=== PATIENT | female | born 1990 | race Caucasian/White ===

== ENCOUNTER 2017-05-27 08:54 | Emergency (ER) | payer BC ==
--- NOTE | 2017-05-27 09:03 | EDPHY ---
H & P Stated Complaint: Epigastric pain since 2am, getting worse. HPI/ROS: CHIEF COMPLAINT: Abdominal pain HISTORY OF PRESENT ILLNESS: The patient is a 26 y/o female with a history of Crohn's disease and epilepsy arriving with her friend complaining of constant epigastric pain and pressure that woke her up from sleep early this morning. She called EMS and they performed an EKG that she was told was normal, but her BP was 180/100. She declined transport, but her pain continued to worsen so she came to the ED. She has associated nausea and vomiting,last episode was one hour ago. She has never had symptoms like this previously. She denies diarrhea, fever, blood in stool or vomit. She is currently menstruating. She notes her most recent colonoscopy this year looked good and her labs during her Remicade infusion last week were largely normal. REVIEW OF SYSTEMS: A ten point review of systems was performed and is negative with the exception of the items mentioned in the HPI. Past medical history: Epilepsy - lamotrigine, Crohn's disease - Remicade, anxiety - buspirone Past surgical history: Noncontributory Family history: Noncontributory Social history: Friend at bedside. 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 No cigarette use. Very rare alcohol use. Some marijuana use. No illicit drug use. PCP: Dr. Leslie Bansal General Appearance: Alert. Vital signs reviewed. Blood pressure 155/105. Eyes: Pupils equal and round, no conjunctival injection, no discharge. Anicteric. ENT, Mouth: Mucous membranes are moist, no oropharyngeal erythema or edema. Neck: No lymphadenopathy, supple. Respiratory: Lungs are clear to auscultation; no wheezes, rales, or rhonchi. Cardiovascular: Regular rate and rhythm; no murmur, rub, or gallop. Gastrointestinal: Abdomen is soft with mild midepigastric tenderness, no masses or organomegaly, bowel sounds normal. Skin: Warm and dry, no rashes on exposed skin, normal color. Back: Nontender to palpation over the thoracolumbar spine. No CVAT. Extremities: No lower extremity edema, no calf tenderness or swelling. Neurological: Alert and oriented. Moving all four extremities easily and equally. Psychiatric: Normal affect. - Personal History LMP (Females 10-55): Now Current Tetanus Diphtheria and Acellular Pertussis (TDAP): Yes Tetanus Vaccine Date: within last 10 years - Medical/Surgical History Hx Asthma: No Hx Chronic Respiratory Disease: No Hx Diabetes: No Hx Cardiac Disease: No Hx Renal Disease: No Hx Cirrhosis: No Hx Alcoholism: No Hx HIV/AIDS: No Hx Splenectomy or Spleen Trauma: No Other PMH: Epiiepsy, Crohns disease. - Social History Smoking Status: Never smoked Constitutional: Initial Vital Signs Temperature (C) 36.6 C 05/27/17 08:55 Heart Rate 76 05/27/17 08:55 Respiratory Rate 18 05/27/17 08:55 Blood Pressure 155/105 H 05/27/17 08:55 O2 Sat (%) 99 05/27/17 08:55 O2 Delivery Mode Room Air O2 (L/minute) 2 Allergies/Adverse Reactions: No Known Allergies Allergy (Unverified 11/14/14 18:03) Home Medications: Medication Instructions Recorded LaMICtal 05/27/17 Mercaptopurine 05/27/17 Pantoprazole Sodium [Protonix 40mg 40 mg PO DAILY #30 tab 05/27/17 (*)] Remicade Inj 100 mg (*) 05/27/17 Sucralfate [Carafate 1gm/10ml Oral 1 gm PO QID #2000 ml 05/27/17 Liquid (*)] busPIRone 05/27/17 oxyCODONE/APAP 5/325 [Percocet 1 - 2 tab PO Q4H PRN #10 tab 05/27/17 5/325 (RX)] Medical Decision Making ED Course/Re-evaluation: This is a 26 y/o female with a history of Crohn's disease, epilepsy, and anxiety who presents with sudden onset epigastric pain that woke her from sleep early this morning. She has mild epigastric tenderness on exam, but otherwise is well-appearing. Plan for IV, labs, and symptom management. 75mcg IV Fentanyl , 20mg IV Pepcid, 4mg IV Zofran, and 1L IV NS administered. The 12 lead EKG was interpreted by myself. Sinus rhythm. See hard copy and/or "tracemaster" electronic copy for interpretation. 1100: Patient's pain improved for awhile, but has spiked again. Labs are unremarkable. Do not suspect cholecystitis pancreatitis, or appendicitis-- normal WBC, LFTs, lipase. No urinary symptoms, I think urinary infection is unlikely. She is moving her bowels and SBO is also unlikely. Her symptoms could represent an ulcer/gastritis that would require endoscopy for further evaluation. PO GI cocktail administered. 1125: Reevaluated patient. She has asked me to speak with her parents via phone. I updated them on patient's condition and work up. Plan to try to get patient's pain under better control and then discharge home. She was given Dilaudid 0.5 mg IV with good effect. I think that she can safely return home with strict return precautions. - Data Points Laboratory Results: Laboratory Results 05/27/17 09:10 05/27/17 09:10 Medications Given: Discontinued Medications Al Hydroxide/Mg Hydroxide (Maalox Susp) 30 ml PO ONCE ONE Stop: 05/27/17 11:10 Last Admin: 05/27/17 11:19 Dose: 30 ml Fentanyl (Sublimaze) 75 mcg IVP EDNOW ONE Stop: 05/27/17 09:15 Last Admin: 05/27/17 09:28 Dose: 75 mcg Hydromorphone HCl (Dilaudid) 0.5 mg IVP EDNOW ONE Stop: 05/27/17 11:50 Last Admin: 05/27/17 12:05 Dose: 0.5 mg Hyoscyamine Sulfate (Levsin, Hyomax-Sl) 0.25 mg PO ONCE ONE Stop: 05/27/17 11:10 Last Admin: 05/27/17 11:19 Dose: 0.25 mg Sodium Chloride (Ns) 1,000 mls @ 0 mls/hr IV EDNOW ONE; Wide Open PRN Reason: Protocol Stop: 05/27/17 09:15 Last Admin: 05/27/17 09:27 Dose: 1,000 mls Famotidine/Sodium Chloride (Pepcid 20 Mg (Premix)) 50 mls @ 200 mls/hr IV EDNOW ONE Stop: 05/27/17 09:28 Last Admin: 05/27/17 09:30 Dose: 50 mls Lidocaine (Lidocaine 2% Viscous) 15 ml PO ONCE ONE Stop: 05/27/17 11:10 Last Admin: 05/27/17 11:19 Dose: 15 ml Ondansetron HCl (Zofran) 4 mg IVP EDNOW ONE Stop: 05/27/17 09:15 Last Admin: 05/27/17 09:28 Dose: 4 mg Departure - Departure Disposition: Home, Routine, Self-Care Clinical Impression: Gastritis Qualifiers: Gastritis type: unspecified gastritis Chronicity: acute Gastritis bleeding: without bleeding Qualified Code(s): K29.00 - Acute gastritis without bleeding Condition: Good Instructions: Gastritis (ED), Diet for Stomach Ulcers and Gastritis (ED) Additional Instructions: 1. Follow up with your confidential secretary in the next week. I recommend calling today to schedule an appointment and tell them you were in the ED. You've been referred to Dr. Blank locally if needed. 2. Use Carafate as prescribed. Take a dose prior to all meals. 3. Take Protonix as prescribed. 4. Return to the ED for worsening of condition. Referrals: Leslie Bansal MD [Primary Care Provider] - As per Instructions Agustin Blank MD [Medical Doctor] - As per Instructions Prescriptions: oxyCODONE/APAP 5/325 [Percocet 5/325 (RX)] 1 - 2 tab PO Q4H PRN #10 tab PRN Reason: Pain, Severe Pantoprazole Sodium [Protonix 40mg (*)] 40 mg PO DAILY #30 tab Sucralfate [Carafate 1gm/10ml Oral Liquid (*)] 1 gm PO QID #2000 ml Report Scribed for: Antoinette Lucas Report Scribed by: Cori Cavazos Date of Report: 05/27/17 Time of Report: 10:15 Physician Review and Approval Statement: 05/27/17 09:03 Portions of this note were transcribed by the medical doctor. I, Dr. Antoinette Lucas, personally performed the history, physical exam, and medical decision- making; and confirmed the accuracy of the information in the transcribed note.
--- NOTE | 2017-05-27 09:08 | CPEKG ---
Heart Rate: 72 RR Interval: 833 P-R Interval: 164 QRSD Interval: 92 QT Interval: 420 QTC Interval: 460 P Chester: 30 QRS Chester: 83 T Wave Chester: 69 EKG Severity - NORMAL ECG - EKG Impression: SINUS RHYTHM Electronically Signed By: Antoinette Lucas 27-May-2017 14:58:54
[2017-05-27] MEDS ORDERED: fentaNYL 100 MCG/2 ML INJ IVP ONE (09:14)
[2017-05-27] MEDS ORDERED: FAMOTIDINE 20 MG/NACL 50 ML IV ONE (09:14)
[2017-05-27] MEDS ORDERED: NS 1,000 ML IV ONE (09:14)
[2017-05-27] MEDS ORDERED: ONDANSETRON 4 MG/2 ML VIAL IVP ONE (09:14)
[2017-05-27 09:23] LABS: PLATELET COUNT 359 10^3/uL (150-400)
[2017-05-27] MEDS ORDERED: LIDOCAINE 2% VISCOUS 15 ML UDCUP PO ONE (11:09)
[2017-05-27] MEDS ORDERED: MAG HYDROX/AL HYDROX/SIMETH 30 ML UDCUP PO ONE (11:09)
[2017-05-27] MEDS ORDERED: HYOSCYAMINE SULFATE 0.125 MG TAB PO ONE (11:09)
[2017-05-27] MEDS ORDERED: HYDROmorphONE/DILAUDID 1 MG/ML INJ IVP ONE (11:49)
[2017-05-27 12:05] VITALS: O2SAT 96
[2017-05-27 13:40] VITALS: BP 122/89; PULSE 74; RESP 16; TEMP 97.5
== END 2017-05-27 13:42 | disposition home or self-care (01) ==
DX: K29.00 Acute gastritis without bleeding (principal); E86.9 Volume depletion, unspecified
CPT/HCPCS: 96374; J1170; J2405; J3010